=== PATIENT | male | born 1990 | race African-American/Black ===

== ENCOUNTER 2019-08-02 13:04 | Emergency (ER) | payer SELFPAY ==
[~2019-08-02] VITALS: Ht 185.4 cm; Wt 159.0 kg
[~2019-08-02 13:04] MED LIST: NO; ZITHROMAX250 MG PO; ZOFRAN4 MG/TAB PO
[2019-08-02 13:12] VITALS: BP 158/98
== END 2019-08-02 13:59 | disposition left against medical advice (07) | DRG 951 ==
LOC: ED 13:04 → LWOBS 13:59
DX: Z91.19 Patient's noncompliance with other medical treatment and regimen (principal)

== ENCOUNTER 2020-02-25 | Emergency (ER) | payer SELFPAY | END 2020-02-25 11:50 | disposition DCSD | DRG 563 | DX: S43.401A Unspecified sprain of right shoulder joint, initial encounter (principal); S33.5XXA Sprain of ligaments of lumbar spine, initial encounter; Y35.833A Legal intervention involving a conducted energy device, suspect injured, initial encounter ==